=== PATIENT | male | born 1985 | race Caucasian/White ===

== ENCOUNTER 2018-02-16 16:29 | Emergency (ER) | payer OTHER ==
[~2018-02-16] VITALS: Ht 185.4 cm; Wt 108.9 kg
[2018-02-16] MEDS ORDERED: AMITRIPTYLINE H25 M2 PO (17:10)
== END 2018-02-16 17:12 | disposition home or self-care (01) ==
LOC: ER 16:29
DX: Z71.1 Person with feared health complaint in whom no diagnosis is made (principal); Z87.891 Personal history of nicotine dependence